=== PATIENT | female | born 1975 | race Caucasian/White ===

== ENCOUNTER 2017-01-03 09:46 | Day surgery (SDC) | payer OTHER ==
[2016-12-19 12:09] LABS: MCH 28.5 pg (25.7-33.7); MCHC 34.6 g/dl (32.0-36.0); MEAN CELL VOLUME 82.5 fl (80-96); MEAN PLT VOLUME 8.9 fl (7.5-11.1); PLATELET COUNT 274 K/MM3 (134-434); RDW 15.7 % (11.6-15.6); WHITE BLOOD COUNT 5.6 K/mm3 (4.0-10.8)
[2016-12-19 12:11] LABS: ANION GAP 7 (8-16); CALCIUM 9.6 mg/dl (8.4-10.2); CO2 23 mmol/L (22-28); CREATININE 0.7 mg/dl (0.6-1.3); GLUCOSE,RANDOM 79 mg/dl (74-106)
[2016-12-19 12:12] LABS: ACTIVATED PTT 35.5 SECONDS (24.0-38.9); INR 1.01 (0.82-1.09); PROTHROMBIN TIME (PATIENT) 11.3 SEC (10.2-13.0)
[2016-12-26 12:59] VITALS: BMI 35.1
[2017-01-03] MEDS ORDERED: BUPIVACAINE HCL/EPINEPHRINE/PF 30 ML VIAL IJ ONE ×3 (10:14→11:09)
[2017-01-03] MEDS ORDERED: MIDAZOLAM HCL 2 MG/2 ML SINGLE DOSE VIAL ONE (11:12)
[2017-01-03] MEDS ORDERED: KETAMINE HCL 500 MG/10 ML VIAL ONE (11:16)
[2017-01-03] MEDS ORDERED: KETOROLAC TROMETHAMINE 30 MG/1 ML VIAL ONE (11:30)
[2017-01-03] MEDS ORDERED: LIDOCAINE HCL 2% JELLY (5 ML/TUBE) ONE (11:30)
[2017-01-03] MEDS ORDERED: DEXAMETHASONE SOD PHOSPHATE 4 MG/1 ML VIAL ONE (11:30)
[2017-01-03] MEDS ORDERED: CLINDAMYCIN PHOSPHATE 600 MG/4 ML VIAL ONE (11:30)
[2017-01-03] MEDS ORDERED: PROPOFOL 20 ML ONE (11:30)
[2017-01-03] MEDS ORDERED: LIDOCAINE HCL/PF 2% SDV 5ML VIAL ONE (11:30)
[2017-01-03] MEDS ORDERED: ONDANSETRON 4 MG/2 ML VIAL ONE (11:30)
[2017-01-03] MEDS ORDERED: BUPIVACAINE 0.25% /EPI 1:200,000 10 ML VIAL INF ONE (11:40)
--- NOTE | 2017-01-03 11:59 | OP ---
Operative Note - Note: Operative Date: 01/03/17 Pre-Operative Diagnosis: left knee PFJ OA Operation: LEft knee arthroscopy, synovectomy, chondroplasty Post-Operative Diagnosis: Same as Pre-op Surgeon: Eliazar Guajardo Anesthesia: General Operative Report Dictated: Yes
--- NOTE | 2017-01-03 12:00 | DS ---
Physical Examination Vital Signs: Vital Signs Temperature 99 F 01/03/17 10:31 Pulse Rate 92 H 01/03/17 10:31 Respiratory Rate 19 01/03/17 10:31 Blood Pressure 114/70 01/03/17 10:31 O2 Sat by Pulse Oximetry (%) 100 01/03/17 10:34 Labs: CBC, BMP 12/19/16 11:15 12/19/16 11:15 Discharge Summary Reason For Visit: MEDIAL MENISCAL TEAR Condition: Good - Instructions Diet, Activity, Other Instructions: Post Operative Instructions: Knee Arthroscopy Dr Eliazar Guajardo 1. Pain following an arthroscopy is variable. Some patients will have more pain than others. You have been provided with a prescription for medication that contains a narcotic. You are not allowed to drive while on this medication. You should NOT take Tylenol (Acetaminophen) when taking the pain medication ( it will result in an overdose). Feel free to take medications such as Ibuprofen or Naprosyn in addition to the pain medicine if you do not have any problems with the NSAID class of medications. 2. You should are allowed to remove the bandages and shower in 24 hours unless directed otherwise. You are not allowed to bathe or go swimming until the sutures are removed. Put band-aids on the sutures after your shower and do not put any creams or lotions over the incisions. 3. You are allowed to put all your weight on the leg and bend your knee, 4. Apply ice to the knee for 15 min every hour or so. You may continue this for as many days as you like. 5. Please call the office to schedule a visit to have your sutures removed. 6. If for any reason you believe you may have an infection or are concerned, please feel free to call me. I can be reached through our office number 24 hours a day. 7. Please call our office with any questions; we will review the surgical findings during your post operative visit. Disposition: HOME - Home Medications Comprehensive Discharge Medication List: Ambulatory Orders Montelukast Na [Singulair -] 10 mg PO HS 09/05/14 Gabapentin [Neurontin] 800 mg PO HS 11/30/14 Albuterol 0.083% Nebulizer Crissy [Ventolin 0.083%] 1 neb NEB PRN PRN 02/15/15 Tiotropium Br/Olodaterol HCl [Stiolto Respimat Inhal [place]] 4 gm IH TID Albuterol Sulfate Inhaler - [Ventolin Hfa Inhaler -] 2 inh PO BID 01/03/17 Amitriptyline HCl [Elavil -] 50 mg PO DAILY 01/03/17 Diazepam 50 mg PO HS 01/03/17 Percocet 10-325 mg Tablet 30 - 325 tab PO BID 01/03/17
[2017-01-03] MEDS ORDERED: oxyCODONE HCL 5 MG TABLET PO PRN ×2 (12:09)
[2017-01-03] MEDS ORDERED: ONDANSETRON 4 MG/2 ML VIAL IVPUSH PRN (12:09)
[2017-01-03] MEDS ORDERED: LACTATED RINGERS SOLUTION 1,000 ML IV SCH (12:15)
[2017-01-03] MEDS ORDERED: ONDANSETRON 4 MG/2 ML VIAL IVPUSH ONE (12:20)
[2017-01-03 13:22] VITALS: PULSE 81
[2017-01-03 13:52] VITALS: TEMP 97.8
[2017-01-03] MEDS ORDERED: oxyCODONE HCL 5 MG TABLET ONE (13:55)
[2017-01-03 15:10] VITALS: BP 109/82
--- NOTE | 2017-01-06 10:07 | PATH ---
Surgical Pathology Report Patient Name: SAMUEL MCCORD [facility]. Rec. #: [id number] /Age/Gender: 1975 (Age: 41) / F Account: [id number] Location: [facility] Taken: 01/03/2017 Received: 01/03/2017 Reported: 01/06/2017 Physicians: Eliazar Guajardo M.D. Specimen(s) Received LEFT KNEE SHAVINGS Clinical History Medial meniscal tear Final Diagnosis KNEE, LEFT, ARTHROSCOPIC SHAVING: FIBROCARTILAGE WITH MYXOID DEGENERATIVE CHANGES, ALONG WITH PORTIONS OF SYNOVIUM AND HYALINE CARTILAGE. Electronically Signed Dale Phoenix M.D. Gross Description Received in formalin labeled "left knee shavings," is a 3.0 x 2.4 x 0.2 cm aggregate of dong-yellow soft tissue fragments. The formalin is filtered and the specimen is entirely submitted in one cassette. /01/03/201701/03/2017
== END 2017-01-03 15:00 | disposition home or self-care (01) ==
LOC: FASU 09:46
PROVIDERS: ATTEND Orthopaedic Surgery
PROC: 0SBD4ZZ Excision of Left Knee Joint, Percutaneous Endoscopic Approach (ICD-10-PCS; 2017-01-03)
PROC: 0SBD4ZZ Excision of Left Knee Joint, Percutaneous Endoscopic Approach (ICD-10-PCS; principal; 2017-01-03 11:22)
DX: M17.12 Unilateral primary osteoarthritis, left knee (principal); M24.10 Other articular cartilage disorders, unspecified site
CPT/HCPCS: 36415; 80048; 85027; 85610; 85730; 88304-TC; 94760

== ENCOUNTER 2019-11-06 18:21 | Emergency (ER) | payer OTHER ==
[2019-11-06] MEDS ORDERED: DIPHTH,PERTUSS(ACELL),TET 0.5 ML DISP.SYRIN IM ONE ×2 (18:27→18:32)
[2019-11-06 18:29] VITALS: BP 139/42; PULSE 80; TEMP 97.8; BMI 36.6
--- NOTE | 2019-11-06 18:30 | PDOC ---
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
[2019-11-06] MEDS ORDERED: KETOROLAC TROMETHAMINE 30 MG/1 ML VIAL IM ONE (18:57)
[2019-11-06] MEDS ORDERED: KETOROLAC TROMETHAMINE 30 MG/1 ML VIAL ONE (18:58)
--- NOTE | 2019-11-06 19:03 | PDOC ---
History of Present Illness - General Chief Complaint: Injury Stated Complaint: FALL Time Seen by Provider: 11/06/19 18:27 History Source: Patient Exam Limitations: Clinical Condition - History of Present Illness Initial Comments: 11/06/19 19:03 Patient with history of chronic back pain on home Percocet and home muscle relaxer severe coccyx pain status post trip and fall while going down a staircase and hitting the coccyx on a staircase. Patient also with right elbow abrasion from fall. Reports severe pain to her coccyx area. Denies hitting head or loss of consciousness. Patient took home oxycodone medication this morning and muscle relaxer given by pain management when injury happened. Patient reported still having persistent pain so she was advised by a neighbor t o come to emergency room. Patient does not recall last tetanus vaccine Occurred: reports: this morning Past History - Medical History Allergies/Adverse Reactions: Allergies Allergy/AdvReac Type Severity Reaction Status Date / Time ceftriaxone sodium Allergy Itching Verified 02/15/15 07:19 [From Rocephin] hydromorphone HCl Allergy Rash Verified 02/15/15 07:19 [From Dilaudid] morphine Allergy RASH, Verified 02/15/15 07:19 ITCHING Penicillins Allergy Rash Verified 02/15/15 07:19 mayonaise Allergy Rash Uncoded 02/15/15 07:19 Home Medications: Ambulatory Orders Montelukast Na [Singulair -] 10 mg PO HS 09/05/14 Gabapentin [Neurontin] 800 mg PO HS 11/30/14 Albuterol 0.083% Nebulizer Crissy [Ventolin 0.083% Nebulizer Soln -] 1 neb NEB PRN PRN 02/15/15 Tiotropium Br/Olodaterol HCl [Stiolto Respimat Inhal [place]] 4 gm IH TID 02/15/15 Albuterol Sulfate Inhaler - [Ventolin HFA Inhaler -] 2 inh PO BID 01/03/17 Amitriptyline HCl [Elavil -] 50 mg PO DAILY 01/03/17 Diazepam 50 mg PO HS 01/03/17 Percocet 10-325 mg Tablet 30 - 325 tab PO BID 01/03/17 Ketorolac Tromethamine [Toradol] 10 mg PO Q8H PRN #21 tablet 11/06/19 Anemia: Yes Asthma: Yes Cancer: No Cardiac Disorders: No CVA: No COPD: No CHF: No Dementia: No Diabetes: No (BORDERLINE/NO MED) GI Disorders: Yes (GASTRITIS) Disorders: Yes (FREQUENCY, INCONTINENCE) HTN: No Hypercholesterolemia: Yes (NO MED) Kidney Stones: (BLADDER PROBLEMS) Liver Disease: No Seizures: No Thyroid Disease: No - Surgical History Abdominal Surgery: Yes Appendectomy: No Cardiac Surgery: No Cholecystectomy: No Lung Surgery: No Neurologic Surgery: No Orthopedic Surgery: Yes (Left Knee Arthroscopy, RIGHT SHOULDER ARTHROSCOPY) - Reproductive History Cervical CA: No Dysfunctional Uterine Bleeding: No Ectopic : No Endometrial CA: No Polycystic Ovaries: No Tubal Ligation: Yes - Psycho-Social/Smoking History Smoking Status: Yes Smoking History: Never smoked Have you smoked in the past 12 months: Yes Number of Cigarettes Smoked Daily: 3 If you are a former smoker, when did you quit?: 08/2013 Cigars Per Day: 1 'Breaking Loose' booklet given: 02/15/15 - Substance Abuse Hx (Audit-C & DAST Scrn) How often the patient has a drink containing alcohol: Never Score: In Men: 4 or > Positive; In Women: 3 or > Positive: 0 Screen Result (Pos requires Nsg. Audit-10AR): Negative In the last yr the pt used illegal drug/Rx for NonMed reason: No Score: Yes response is considered Positive: 0 Screen Result (Positive result requires Nsg. DAST-10): Negative Review of Systems - Review of Systems Able to Perform ROS?: Yes Is the patient limited Yoruba proficient: No Constitutional: No: Chills, Fever, Malaise HEENTM: No: Symptoms Reported, See HPI, Eye Pain, Blurred Vision, Tearing, Recent change in vision, Double Vision, Cataracts, Ear Pain, Ocular Prothesis, Ear Discharge, Nose Pain, Nose Congestion, Tinnitus, Nose Bleeding, Hearing Loss, Throat Pain, Throat Swelling, Mouth Pain, Dental Problems, Difficulty Swal lowing, Mouth Swelling, Other Respiratory: No: Symptoms reported, Shortness of Breath Cardiac (ROS): No: Symptoms Reported ABD/GI: No: Symptoms Reported, Nausea, Vomiting : No: Symptoms Reported, Hematuria Musculoskeletal: Yes: Symptoms Reported, See HPI, Back Pain (Coccyx pain) Integumentary: Yes: Symptoms Reported, See HPI, Other (Abrasion to right elbow) Neurological: No: Symptoms reported, Numbness, Paresthesia, Tingling All Other Systems: Reviewed and Negative *Physical Exam - Vital Signs Last Vital Signs Temp Pulse Resp BP Pulse Ox 97.8 F 80 16 139/42 L 98 11/06/19 18:27 11/06/19 18:27 11/06/19 18:27 11/06/19 18:27 11/06/19 18:27 - Physical Exam 11/06/19 19:11 GENERAL: Well developed, well nourished. Awake and alert in moderate acute distress. CARDIOVASCULAR: Regular rate and rhythm. No murmurs, rubs, or gallops. PULMONARY: No evidence of respiratory distress. Lungs clear to auscultation bilaterally. No wheezing, rales or rhonchi. ABDOMINAL: Soft. Non-tender. Non-distended. No rebound or guarding. No organomegaly. Normoactive bowel sounds MUSCULOSKELETAL : Moderate tenderness over lower sacrum and coccyx. No bony deformities. No radiculopathy SKIN: Warm and dry. Normal capillary refill. 1 mm superficial abrasion to olecranon of right elbow NEUROLOGICAL: Alert, awake, appropriate. No motor deficits in the lower extremities. Gait is normal without ataxia. PSYCHIATRIC: Cooperative. Good eye contact. Appropriate mood and affect. General Appearance: Yes: Nourished, Appropriately Dressed, Apparent Distress, Moderate Distress Medical Decision Making - Medical Decision Making 11/06/19 19:07 Patient with history of chronic back pain on home Percocet and home muscle relaxer severe coccyx pain status post trip and fall while going down a staircase and hitting the coccyx on a staircase. Patient also with right elbow abrasion from fall. Reports severe pain to her coccyx area. Denies hitting head or loss of consciousness. Patient took home oxycodone medication this morning and muscle relaxer given by pain management when injury happened. Patient reported still having persistent pain so she was advised by a neighbor to come to emergency room. Patient does not recall last tetanus vaccine Exam significant for 1 mm superficial abrasion to olecranon of right elbow with no bleeding. Mild tenderness over abrasion area. Moderate tenderness to coccyx and lower sacral with patient in moderate distress. X-ray of coccyx shows fracture of the coccyx. Toradol 30 mg IM given for pain. Patient stable for discharge to continue home oxycodone for pain and muscle relaxer with advised to do hot compresses with follow-up with her pain management. Boostrix tetanus vaccine given. Abrasion to right elbow cleaned with Betadine and bacitracin applied to wound and wound covered with adhesive bandage. Patient stable for discharge Discharge - Discharge Information Problems reviewed: Yes Clinical Impression/Diagnosis: Fall Qualifiers: Encounter type: initial encounter Qualified Code(s): W19.XXXA - Unspecified fa ll, initial encounter Fractured coccyx Qualifiers: Encounter type: initial encounter Fracture type: closed Qualified Code(s): S32.2XXA - Fracture of coccyx, initial encounter for closed fracture Condition: Stable Disposition: HOME - Admission No - Additional Discharge Information Prescriptions: Ketorolac Tromethamine [Toradol] 10 mg PO Q8H PRN #21 tablet PRN Reason: pain - Follow up/Referral - Patient Discharge Instructions Patient Printed Discharge Instructions: DI for Coccyx Fracture Additional Instructions: X-ray of your back shows fracture of the coccyx. There is nothing to do for the fracture of your coccyx as it will heal by itself. Take prescribed medication as needed for pain and apply hot compresses to the back as needed. Follow-up with your pain management - Post Discharge Activity
== END 2019-11-06 19:20 | disposition home or self-care (01) ==
LOC: JERFT 18:21
PROC: 3E0234Z Introduction of Serum, Toxoid and Vaccine into Muscle, Percutaneous Approach (ICD-10-PCS; principal; 2019-11-06)
PROC: 3E023GC Introduction of Other Therapeutic Substance into Muscle, Percutaneous Approach (ICD-10-PCS; principal; 2019-11-06)
DX: S32.2XXA Fracture of coccyx, initial encounter for closed fracture (principal); W10.8XXA Fall (on) (from) other stairs and steps, initial encounter
CPT/HCPCS: 72220-TC-FY; 90715; 99284-25

== ENCOUNTER 2021-10-02 04:15 | Day surgery (SDC) | payer OTHER ==
[2021-09-14 11:32] VITALS: BMI 38.4
[2021-10-02] MEDS ORDERED: LIDOCAINE HCL/PF 1% SDV 5ML VIAL ONE (07:12)
[2021-10-02] MEDS ORDERED: BUPIVACAINE HCL/PF 0.75% 10 ML VIAL ONE (07:12)
[2021-10-02] MEDS ORDERED: LIDOCAINE HCL 1% PRESERVATIVE FREE - 30ML VIAL IJ ONE (14:35)
[2021-10-02] MEDS ORDERED: BUPIVACAINE HCL/PF 0.75% 10 ML VIAL NR ONE (14:40)
[2021-10-02] MEDS ORDERED: ACETAMINOPHEN 325 MG TABLET (FP) ONE (15:04)
[2021-10-02] MEDS ORDERED: ACETAMINOPHEN 325 MG TABLET (FP) PO ONE (15:10)
[2021-10-02 15:14] VITALS: BP 110/50; PULSE 74; TEMP 97.8
== END 2021-10-02 15:39 | disposition home or self-care (01) ==
LOC: JASU-SURG 04:15
PROVIDERS: ATTEND Pain Medicine Pain Medicine
PROC: BR16YZZ Fluoroscopy of Lumbar Facet Joint(s) using Other Contrast (ICD-10-PCS; 2021-10-02)
PROC: 3E0T3BZ Introduction of Anesthetic Agent into Peripheral Nerves and Plexi, Percutaneous Approach (ICD-10-PCS; principal; 2021-10-02 17:00)
DX: M47.816 Spondylosis without myelopathy or radiculopathy, lumbar region (principal); E11.9 Type 2 diabetes mellitus without complications
CPT/HCPCS: 76000-TC-FY

== ENCOUNTER 2021-10-30 03:51 | Day surgery (SDC) | payer OTHER ==
[2021-10-25 10:19] VITALS: BMI 38.4
[2021-10-30] MEDS ORDERED: SODIUM CHLORIDE 0.9% P/F 10 ML VIAL IJ ONE (08:10)
[2021-10-30] MEDS ORDERED: BUPIVACAINE HCL/PF 0.75% 10 ML VIAL ONE (08:16)
[2021-10-30] MEDS ORDERED: LIDOCAINE HCL 1% PRESERVATIVE FREE - 30ML VIAL IJ ONE (08:42)
[2021-10-30] MEDS ORDERED: BUPIVACAINE HCL/PF 0.75% 10 ML VIAL NR ONE (08:43)
[2021-10-30 12:09] VITALS: BP 130/73; PULSE 72; TEMP 98.1
== END 2021-10-30 09:40 | disposition home or self-care (01) ==
LOC: JASU-SURG 03:51
PROVIDERS: ATTEND Pain Medicine Pain Medicine
PROC: 3E0T33Z Introduction of Anti-inflammatory into Peripheral Nerves and Plexi, Percutaneous Approach (ICD-10-PCS; 2021-10-30)
PROC: 3E0T3BZ Introduction of Anesthetic Agent into Peripheral Nerves and Plexi, Percutaneous Approach (ICD-10-PCS; principal; 2021-10-30 08:30)
DX: M47.816 Spondylosis without myelopathy or radiculopathy, lumbar region (principal)
CPT/HCPCS: 76000-TC-FY; J1100

== ENCOUNTER 2021-11-30 04:00 | Day surgery (SDC) | payer OTHER ==
[2021-11-28 16:35] VITALS: BMI 38.4
[2021-11-30] MEDS ORDERED: LIDOCAINE HCL/PF 1% SDV 5ML VIAL ONE (07:12)
[2021-11-30] MEDS ORDERED: BUPIVACAINE HCL/PF 0.75% 10 ML VIAL ONE (07:12)
[2021-11-30] MEDS ORDERED: DEXAMETHASONE SOD PHOSPHATE 10 MG/1 ML VIAL ONE (07:15)
[2021-11-30] MEDS ORDERED: LIDOCAINE HCL/PF 2% SDV 5ML VIAL ONE (07:23)
[2021-11-30 09:15] VITALS: BP 143/73; PULSE 82; RESP 18; TEMP 98.8
== END 2021-11-30 11:55 | disposition home or self-care (01) ==
LOC: JASU-SURG 04:00
PROVIDERS: ATTEND Pain Medicine Pain Medicine
DX: Z53.8 Procedure and treatment not carried out for other reasons (principal)
CPT/HCPCS: J1100